=== PATIENT | male | born 1995 | race Two or more races ===

== ENCOUNTER 2024-10-24 23:37 | Emergency (ER) | payer MEDICAID, SELFPAY ==
[2024-10-24 23:37] VITALS: BMI 22.1
[2024-10-24 23:47] VITALS: BP 156/92; PULSE 100; RESP 18; TEMP 37.2; O2SAT 96
--- NOTE | 2024-10-24 23:53 | EKG_ITS ---
[facility] Test Date: 2024-10-24 Pat Name: JESSICA DREW Department: Room: - Gender: Male Assistant Kitchen Manager: : 1995 Requested By: James Etienne Order Number: [id number] Reading MD: James Etienne Measurements Intervals [place] Rate: 100 P: 45 VA: 169 QRS: 26 QRSD: 81 T: 18 QT: 307 QTc: 396 Interpretive Statements SINUS TACHYCARDIA ABNORMAL RHYTHM ECG No previous ECG available for comparison /store/S0/[id number]
--- NOTE | 2024-10-24 23:53 | PD.EDRME ---
Rapid Medical Screening Exam RME Arrival date/time: 10/24/24 23:37 Chief Complaint: Shortness of Breath/Dyspnea Time Seen by Provider: 10/24/24 23:47 Vital signs: Vital Signs Temperature 98.9 F 10/24/24 23:47 Pulse Rate 100 10/24/24 23:47 Respiratory Rate 18 10/24/24 23:47 Blood Pressure 156/92 H 10/24/24 23:47 Pulse Oximetry (%) 96 10/24/24 23:47 Oxygen Delivery Method Room Air 10/24/24 23:47 RME Narrative: Shortness of breath x 1 week, intermittent dizziness x 1 month. Denies hx asthma
--- NOTE | 2024-10-25 00:01 | XR_ITS ---
Examination: AP chest single view TECHNIQUE: AP portable upright chest single view Date and time: October 25, 2024 12:39 AM INDICATIONS: Shortness of breath one week FINDINGS: Minimal prominence left ventricle Mild vascular congestion. No pneumonia or pulmonary edema The osseous structures are intact IMPRESSION: Mild vascular congestion
--- NOTE | 2024-10-25 00:30 | EDNOTE_ITS ---
ED SOB =RME/HPI General Chief Complaint: Shortness of Breath/Dyspnea Stated Complaint: DIFFICULTY BREATHING, DIZZY Time Seen by Provider: 10/24/24 23:47 Arrival date/time: 10/24/24 23:37 RME / HPI RME / HPI Narrative: Shortness of breath x 1 week, intermittent dizziness x [address]. Mathew?s Main ED Evaluation: 29yo male with a history of HTN presents to the ED for complaints of shortness of breath and dizziness x 2 hours. Patient states he was on a walk at 2230 when he started developing shortness of breath and dizziness. Patient states his symptoms weren't resolving, so he came in for evaluation. Patient denies any cough, fever, chills, chest pain, abdominal pain or any other associated symptoms. Patient states he stopped taking his antihypertensives 2 years ago because he ran out of refills and has not been back to his PCP's office. Patient states he used to take benazepril 50mg. Patient notes he is a daily drinker. Related Data Previous Rx's ?Medication ?Instructions ?Recorded ibuprofen 800 mg tablet 800 mg PO TID PRN pain #30 t abs 10/25/21 loperamide 2 mg capsule (Imodium 2 mg PO Q6H PRN loose stool #14 10/25/21 A-D) caps doxycycline monohydrate 100 mg 100 mg PO BID 7 days #1 4 caps 10/25/24 capsule Allergies Allergy/AdvReac Type Severity Reaction Status Date / Time Penicillins Allergy Verified 10/24/24 23:37 Review of Systems Review of Systems Systems Reviewed: All systems reviewed, normal except as documented Past Medical History Past Medical History CARDIAC: Negative Congestive Heart Failure RESPIRATORY: Negative Chronic Obstructive Pulmonary Disease (COPD) GENITOURINARY: Negative Renal Disease ENDOCRINE: Negative Diabetes Mellitus Type 1 or Diabetes Mellitus Type 2 Social History SMOKING STATUS: Current every day smoker ED Exam Narrative Physical exam: GENERAL APPEARANCE: alert and oriented x 4, well-developed, well-nourished, no acute distress VITALS: All vitals were reviewed and the pulse ox is 96% on room air, which is normal according to my interpretation. HEENT: Normocephalic, atraumatic; pupils equal, round, reactive to light; EOMI; mucous membranes pink, moist; oropharynx clear NECK: Supple LUNGS: CTABL; no wheezes, no rales, no rhonchi HEART: Regular rate, regular rhythm; normal S1, S2; no murmurs ABDOMEN: non distended; normal BS; soft, no tenderness, no guarding, no rebound; no masses, no organomegaly, no hernia BACK: no CVA tenderness EXTREMITIES: atraumatic; no edema NEUROLOGIC: awake; alert and oriented x4; cranial nerves II-XII grossly intact; no focal sensory or motor deficits PSYCHIATRIC: appropriate mood and affect SKIN: warm, dry, normal color; no rashes; furuncle at the right axilla Course Course Course Narrative: CXR is ordered for determining the etiology of shortness of breath. Quality Measures none Orders Category Date Time Status Instrument Assembler NOW Care 10/25/24 00:33 Active Continuous Pulse Oximetry NOW Care 10/25/24 00:33 Completed EKG (ED ONLY) *Do not use* NOW Care 10/24/24 23:53 Completed Insert IV NOW Care 10/25/24 00:33 Active EKG (ED Only) Stat Exams 10/24/24 23:53 Draft XR chest 1V Stat Exams 10/25/24 00:01 Taken XR chest 2V Stat Exams 10/25/24 00:35 Ordered BNP [B-Type Natriuretic Peptide] Stat Lab 10/24/24 23:54 Completed CBC Stat Lab 10/24/24 23:53 Completed CMP [Comprehensive Metabolic Panel] Stat Lab 10/24/24 23:53 Completed Drug Screen,Urine Stat Lab 10/25/24 00:34 Ordered Magnesium Stat Lab 10/25/24 00:27 Completed Prothrombin Time with INR Stat Lab 10/25/24 00:27 Completed Troponin I Stat Lab 10/24/24 23:53 Completed Urinalysis Stat Lab 10/25/24 00:34 Ordered Reevaluation(s) Reevaluation #1: Patient states he feels significantly better and will consider attending AA meetings. Patient is stable to be discharged home. Time: 02:29 Vital Signs Vital signs: Vital Signs Temperature 98.9 F 10/24/24 23:47 Pulse Rate 100 10/24/24 23:47 Respiratory Rate 18 10/24/24 23:47 Blood Pressure 156/92 H 10/24/24 23:47 Pulse Oximetry (%) 96 10/24/24 23:47 Oxygen Delivery Method Room Air 10/24/24 23:47 Shortness of Breath / Dyspnea MDM Narrative MDM Narrative:: Scribe Attestation: 10/25/24 Nicol Ribera am scribing for and in the presence of Dr. Mathew. Patient data External records reviewed:: [facility] previous records (Per chart review, patient was seen here on 10/25/21 for viral illness.) Clinical information provided by:: patient Social determinants that could affect healthcare access:: alcohol use Patient has the following chronic illnesses:: none How is presenting disease/condition affected by chronic disease/condition?: no chronic disease Evaluation data The following diagnostics were reviewed and interpreted by me:: lab results, radiology exam(s) and EKG tracing(s) Lab and/or radiology exams considered but not ordered:: none Interpretation Summary: WBC 12.4, CMP is normal, Troponin is normal, BNP is normal, according to my interpretation. CXR shows normal cardiac silhouette, no fractures, normal sharp diaphragmatic edge, no infiltrates, normal costophrenic angles, according to my interpretation. EKG done at 2355, sinus tachycardia, rate of 100, normal axis, no ectopy, no STEMI, according to my interpretation. Medications / Prescriptions Medications or Prescriptions considered but not ordered:: none Medication administrations:: none Consultations Consultation(s) initiated? (list below): No Diagnosis Shortness of Breath Differential Diagnosis: congestive heart failure, community acquired pneumonia and other (pneumothorax, anemia) Most likely diagnosis given after review of the tests above:: see clinical impression below Admission Indicated Admission indicated?: not indicated Admission Request Was there a request for admission?: No Disposition Plan Disposition Plan: Discharge Discharge Attestation Discharge Attestation: The patient and all family members were given an opportunity to ask questions and understood the discharge instructions. Discharge instructions specifically effects, indications for sooner follow up or return to the emergency department, and the expected course of current diagnosis. Patient condition: Stable Discharge Plan Plan Patient Disposition: HOME (Self Care) Discharge Disposition comment: Stable for discharge home Patient condition on transfer: Stable Prescriptions/Referrals Prescriptions/Med Rec: New doxycycline monohydrate 100 mg capsule 100 mg PO BID 7 Days Qty: 14 0RF No Action loperamide [Imodium A-D] 2 mg capsule 2 mg PO Q6H PRN (Reason: loose stool) Qty: 14 0RF ibuprofen 800 mg tablet 800 mg PO TID PRN (Reason: pain) Qty: 30 0RF Referrals: Truman Lennon MD [Primary Care Provider] - In 1 week Problem List Clinical Impression: Dyspnea, Dizziness, Furuncle Patient/Caregiver Discharge Instructions Discharge Activity: activity as tolerated Education Materials: Signs of Alcohol Addiction ..., Understanding Alcoholism, ED Shortness of Breath (Dyspnea), ED Folliculitis Additional Instructions: Please return to the emergency department if you have any worsening or any further medical problems and we will help you. Otherwise you should follow-up with your primary care doctor in the [facility] within the next several days. You should use hot compresses in your right armpit. You should do this about 6 times a day. You can make a hot compress by placing a washcloth under the hot water just as hard as he can stand it and then placing it in your right armpit. This will help the small infection to heal more quickly. Print Language: Marshallese Stand Alone Forms: Namita Award Info., Patient Portal Info Letter
[2024-10-25 00:31] LABS: Hematocrit 44.8 % (41.0-53.0); Lymphocytes % (Auto) 27 % (10-50); Mean Corpuscular HGB Conc 35.7 g/dl (31.0-37.0); Mean Corpuscular Hemoglobin 30.4 pg (25.0-35.0); Mean Corpuscular Volume 85 fL (80-100); Neutrophils % (Auto) 61 % (37-80); Platelet Count 321 Thou/mm3 (140-440); Red Blood Count 5.27 Miln/mm3 (4.50-5.90); White Blood Count 12.4 Thou/mm3 (3.8-10.6)
[2024-10-25 00:32] LABS: Basophils # (Auto) 0.1 Thou/mm3 (0.0-0.2); Basophils % (Auto) 1 % (0-2.5); Eosinophils # (Auto) 0.4 Thou/mm3 (0.0-0.5); Eosinophils % (Auto) 4 % (0-10); Immature Granulocytes % (Auto) 1 % (0-0); Immature Granulocytes Auto 0.06 Thou/mm3 (0.00-0.00); Lymphocytes # (Auto) 3.3 Thou/mm3 (1.0-4.8); Monocytes # (Auto) 0.9 Thou/mm3 (0.0-0.8); Monocytes % (Auto) 8 % (0-12); Neutrophils # (Auto) 7.6 Thou/mm3 (1.8-7.7); Nucleated Red Blood Cell % 0 /100 WBC (0)
[2024-10-25 00:53] LABS: Alanine Aminotransferase 22 U/L (10-49); Albumin, Serum 4.3 gm/dL (3.5-5.0); Albumin/Globulin Ratio 1.8 (1.2-2.2); Alkaline Phosphatase 79 U/L (46-116); Anion Gap 10 (7-16); Aspartate Amino Transferase 18 U/L (0-34); BUN/Creatinine Ratio 11 Ratio (12-20); Bilirubin,Total 0.5 mg/dL (0.3-1.2); Blood Urea Nitrogen 11 mg/dL (9-23); Calcium 8.8 mg/dL (8.3-10.6); Calcium (Corrected) 8.8 mg/dL (8.5-10.1); Carbon Dioxide 21.9 mMol/L (20.0-31.0); Chloride 111 mMol/L (98-107); Globulin 2.4 gm/dL (2.3-3.5); Glucose 117 mg/dL (74-106); Osmolality,Calculated 285 (275-295); Sodium 143 mMol/L (136-145); Total Protein 6.7 gm/dL (5.7-8.2); Troponin I < 0.002 ng/mL (0.0-0.045); eGFR > 60 See Note
[2024-10-25 00:56] VITALS: PULSE 88
[2024-10-25 00:56] LABS: B-Type Natriuretic Peptide < 20 pg/mL (0-100)
[2024-10-25 02:25] VITALS: BP 128/95; PULSE 83; RESP 19; TEMP 36.4; O2SAT 96
[2024-10-25 02:40] VITALS: BP 128/85; PULSE 85; RESP 18; TEMP 37; O2SAT 98
== END 2024-10-25 02:42 | disposition home or self-care (01) ==
PROVIDERS: Physician Assistant; Emergency Provider Emergency Medicine; PCP Family Medicine
DX: R06.00 Dyspnea, unspecified (principal); R42 Dizziness and giddiness; L02.92 Furuncle, unspecified; I10 Essential (primary) hypertension
CPT/HCPCS: 36415; 71045; 80053; 80307; 81001; 83735; 83880; 84484; 85025; 85610; 93005; 99283

== ENCOUNTER 2025-01-06 11:42 | Emergency (ER) | payer MEDICAID, SELFPAY ==
[2025-01-06 12:13] VITALS: BP 127/88; PULSE 97; RESP 18; TEMP 36.8; O2SAT 96; BMI 35.4
--- NOTE | 2025-01-06 12:35 | PD.EDSOB ---
ED SOB =RME/HPI General Chief Complaint: Shortness of Breath/Dyspnea Stated Complaint: HIGH BLOOD PRESSURE PROBLEMS; DIZZY / SOB Time Seen by Provider: 01/06/25 12:43 Source: patient Arrival date/time: 01/06/25 11:42 Mode of arrival: ambulatory Limitations: no limitations RME / HPI Complaint: shortness of breath, cough and asthma attack (DENIES) Onset (ago): month(s) (1 MONTH) Severity: moderate Related Data Previous Rx's ?Medication ?Instructions ?Recorded ibuprofen 800 mg tablet 800 mg PO TID PRN pain #30 tabs 10/25/21 loperamide 2 mg capsule (Imodium 2 mg PO Q6H PRN loose stool #14 10/25/21 A-D) caps Allergies Allergy/AdvReac Type Severity Reaction Status Date / Time Penicillins Allergy Verified 01/06/25 11:46 Review of Systems Constitutional Constitutional: Reports system reviewed and no additional complaints, except as documented Eyes Eyes: Reports system reviewed and no additional complaints, except as documented, Denies dry eyes, Denies exophthalmos and Reports floaters Cardiovascular Cardiovascular: Denies chest pain with activity and Denies claudication ED Exam General Limitations: Present no limitations General appearance: Present alert and in no apparent distress Head Head exam: Present atraumatic Eye Eye exam: Present normal appearance and EOMI ENT ENT exam: Present normal exam, normal oropharynx and mucous membranes moist Neck Neck exam: Present normal inspection, full ROM and trachea midline Chest Chest inspection: Present normal inspection and symmetric chest wall rise Respiratory Respiratory exam: Present normal lung sounds bilaterally, respiratory distress (Patient is not in any respiratory distress) and wheezes (No wheezing presently) Cardiovascular Cardiovascular exam: Present regular rate, normal rhythm and normal heart sounds Extremities Exam Extremities exam: Present normal inspection and full ROM Back Exam Back exam: Present normal inspection and full ROM Neurological Exam Neurological exam: Present alert and oriented X3 Psychiatric Psychiatric exam: Present normal affect and normal mood Skin Skin exam: Present warm, dry, intact and normal color Course Course Course Narrative: Patient will have a two-view x-ray will give him treatment with dexamethasone 10 mg IM. Quality Measures none (NA) Orders Category Date Time Status EKG (ED ONLY) *Do not use* NOW Care 01/06/25 12:48 Completed EKG (ED Only) Stat Exams 01/06/25 12:48 Draft CBC Stat Lab 01/06/25 13:00 Completed CMP [Comprehensive Metabolic Panel] Stat Lab 01/06/25 13:00 Completed LDH (Lactate Dehydrogenase) Stat Lab 01/06/25 13:00 Completed Magnesium Stat Lab 01/06/25 13:00 Completed Troponin I Stat Lab 01/06/25 13:00 Completed Albuterol/Ipratr Rt Jocelyn [Duoneb Rt Jocelyn] Med 01/06/25 12:38 Discontinued 3 ml INH X1 ONE Dexamethasone Inj [Decadron Inj] Med 01/06/25 12:38 Discontinued 10 mg IM X1 ONE DONE Vital Signs Vital signs: Vital Signs Temperature 98.3 F 01/06/25 12:13 Pulse Rate 97 01/06/25 12:13 Respiratory Rate 18 01/06/25 12:13 Blood Pressure 127/88 H 01/06/25 12:13 Pulse Oximetry (%) 96 01/06/25 12:13 Oxygen Delivery Method Room Air 01/06/25 12:13 Pulse ox is 96% room air Shortness of Breath / Dyspnea Patient data External records reviewed:: Other (specify) (NA) Clinical information provided by:: none (NA) Social determinants that could affect healthcare access:: none (NA) Patient has the following chronic illnesses:: NA How is presenting disease/condition affected by chronic disease/condition?: no chronic disease Evaluation data The following diagnostics were reviewed and interpreted by me:: other (specify) Lab and/or radiology exams considered but not ordered:: NA Interpretation Summary: NA Medications / Prescriptions Medications or Prescriptions considered but not ordered:: NA Medication administrations:: Medication Administration History Discontinued Medications Albuterol/Ipratropium (Albuterol/Ipratropium (Duoneb) Rt Jocelyn 3 Ml Nebu) 3 ml INH X1 ONE Stop: 01/06/25 12:39 Last Admin: 01/06/25 12:53 Dose: Not Given Documented By: Non-Admin Reason: Cancelled by Provider Dexamethasone Sodium Phosphate (Dexamethasone Sod Phos Inj 10 Mg/Ml Vial) 10 mg IM X1 ONE Stop: 01/06/25 12:39 Last Admin: 01/06/25 12:53 Dose: Not Given Documented By: Non-Admin Reason: Cancelled by Provider NA Consultations Consultation(s) initiated? (list below): No Consultation #1 (Physician, Specialty, Details): NA Diagnosis Shortness of Breath Differential Diagnosis: acute exacerbation of chronic obstructive airways disease, congestive heart failure, community acquired pneumonia and asthma with exacerbation Most likely diagnosis given after review of the tests above:: NA Admission Indicated Admission indicated?: not indicated Admission Request Was there a request for admission?: No Disposition Plan Disposition Plan: Discharge Discharge Attestation Discharge Attestation: The patient and all family members were given an opportunity to ask questions and understood the discharge instructions. Discharge instructions specifically effects, indications for sooner follow up or return to the emergency department, and the expected course of current diagnosis. Patient condition: Stable Discharge Plan Plan Patient Disposition: HOME (Self Care) Discharge Disposition comment: Discharge no apparent distress Patient condition on transfer: Stable Prescriptions/Referrals Prescriptions/Med Rec: No Action loperamide [Imodium A-D] 2 mg capsule 2 mg PO Q6H PRN (Reason: loose stool) Qty: 14 0RF ibuprofen 800 mg tablet 800 mg PO TID PRN (Reason: pain) Qty: 30 0RF Referrals: Noemi Eden ROLLER MACHINE OPERATOR [Primary Care Provider] - In 1 week Problem List Clinical Impression: Anxiety Patient/Caregiver Discharge Instructions Print Language: Citizen Of [place] Stand Alone Forms: Namita Award Info., Patient Portal Info Letter PA/BUSINESS ANALYSIS ANALYST Supervising Physician PA/BUSINESS ANALYSIS ANALYST Supervising Physician: KRYSTIAN
--- NOTE | 2025-01-06 12:48 | EKG_ITS ---
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
[2025-01-06 13:11] LABS: Basophils # (Auto) 0.1 Thou/mm3 (0.0-0.2); Basophils % (Auto) 1 % (0-2.5); Eosinophils # (Auto) 0.3 Thou/mm3 (0.0-0.5); Eosinophils % (Auto) 2 % (0-10); Hematocrit 50.4 % (41.0-53.0); Hemoglobin 17.3 g/dL (13.5-16.0); Immature Granulocytes Auto 0.04 Thou/mm3 (0.00-0.00); Lymphocytes # (Auto) 2.2 Thou/mm3 (1.0-4.8); Lymphocytes % (Auto) 18 % (10-50); Mean Corpuscular HGB Conc 34.3 g/dl (31.0-37.0); Mean Corpuscular Hemoglobin 29.9 pg (25.0-35.0); Mean Corpuscular Volume 87 fL (80-100); Monocytes # (Auto) 0.8 Thou/mm3 (0.0-0.8); Monocytes % (Auto) 7 % (0-12); Neutrophils # (Auto) 8.6 Thou/mm3 (1.8-7.7); Neutrophils % (Auto) 72 % (37-80); Nucleated Red Blood Cell # 0.00 Thou/mm3 (0.00-0.00); Nucleated Red Blood Cell % 0 /100 WBC (0); Platelet Count 354 Thou/mm3 (140-440); RDW Standard Deviation 41.4 fL (35.1-43.9); Red Blood Count 5.78 Miln/mm3 (4.50-5.90); White Blood Count 12.0 Thou/mm3 (3.8-10.6)
[2025-01-06 13:33] LABS: Alanine Aminotransferase 21 U/L (10-49); Albumin, Serum 4.7 gm/dL (3.5-5.0); Albumin/Globulin Ratio 1.7 (1.2-2.2); Alkaline Phosphatase 84 U/L (46-116); Anion Gap 7 (7-16); Aspartate Amino Transferase 18 U/L (0-34); BUN/Creatinine Ratio 12 Ratio (12-20); Bilirubin,Total 1.4 mg/dL (0.3-1.2); Blood Urea Nitrogen 12 mg/dL (9-23); Calcium 9.4 mg/dL (8.3-10.6); Calcium (Corrected) 9.4 mg/dL (8.5-10.1); Carbon Dioxide 26.2 mMol/L (20.0-31.0); Chloride 108 mMol/L (98-107); Creatinine (Component) 1.0 mg/dL (0.6-1.3); Estimated Creatinine Clearance 130.1 mL/min (>60); Globulin 2.7 gm/dL (2.3-3.5); Glucose 111 mg/dL (74-106); LDH (Lactate Dehydrogenase) 142 U/L (120-246); Magnesium 1.7 mg/dL (1.6-2.6); Osmolality,Calculated 281 (275-295); Potassium 4.2 mMol/L (3.4-5.1); Sodium 141 mMol/L (136-145); Total Protein 7.4 gm/dL (5.7-8.2); Troponin I < 0.002 ng/mL (0.0-0.045); eGFR > 60 See Note
== END 2025-01-06 14:20 | disposition home or self-care (01) ==
PROVIDERS: Physician Assistant; Emergency Provider Family Medicine; PCP Nurse Practitioner Family
DX: F41.9 Anxiety disorder, unspecified (principal)
CPT/HCPCS: 36415; 80053; 83615; 83735; 84484; 85025; 93005; 99283